=== PATIENT | male | born 1965 | race Two or more races ===

== ENCOUNTER 2023-11-07 12:19 | Emergency (ER) | payer BC, OTHER ==
[~2023-11-07] VITALS: Ht 172.7 cm; Wt 78.5 kg
[2023-11-07 14:50] VITALS: BP 103/58; PULSE 60; RESP 14; TEMP 97.6; O2SAT 97
== END 2023-11-07 17:06 | disposition left against medical advice (07) ==
LOC: ER 12:19
DX: H53.141 Visual discomfort, right eye (principal); H53.8 Other visual disturbances; Z53.21 Procedure and treatment not carried out due to patient leaving prior to being seen by health care provider